=== PATIENT | male | born 1975 | race Caucasian/White ===

== ENCOUNTER 2017-04-13 20:38 | Emergency (ER) | payer SELFPAY ==
[2017-04-13 23:47] LABS: #Eosinphils 0.1 thou/uL (0.0-0.7); #Lymphocytes 0.7 thou/uL (1.20-3.40); #Monocytes 0.7 thou/uL (0.11-0.59); #Neutrophils 5.7 thou/uL (1.40-6.50); %Basophils 0.4 % (0.0-1.0); %Eosinophils 0.8 % (0.0-10.0); %Lymphocytes 9.9 % (21.0-51.0); %Monocytes 10.2 % (0.0-10.0); Hematocrit 47.7 % (42.0-52.0); Mean Platelet Volume 6.3 fL (7.4-10.4); Red Blood Cell (RBC) Count 4.55 mill/uL (4.70-6.10); White Blood Cell (WBC) Count 7.2 thou/uL (4.8-10.8)
[2017-04-13 23:56] LABS: Acetaminophen Less than 6.0 mcg/mL (10.0-30.0); Salicylate Less than 8.0 mg/dL (15.0-30.0)
[2017-04-13 23:58] LABS: ALT (SGPT) 14 U/L (8-55); AST (SGOT) 24 U/L (5-34); Alkaline Phosphatase 73 U/L (40-150); Anion Gap 14 mmol/L (10-20); BUN (Urea Nitrogen) 8 mg/dL (8.9-20.6); Bilirubin, Total 0.5 mg/dL (0.2-1.2); Calc. Creatinine Clearance 0 mL/min (70-130); Calcium 9.3 mg/dL (7.8-10.44); Carbon Dioxide 25 mmol/L (22-29); Chloride 97 mmol/L (98-107); Estimated GFR-MDRD 83; Globulin 2.4 g/dL (2.4-3.5); Protein, Total 6.3 g/dL (6.0-8.3)
[2017-04-14 00:26] LABS: Troponin I Less than 0.010 ng/mL (< 0.028)
== END 2017-04-14 00:40 | disposition home or self-care (01) ==
LOC: ERS 20:38
DX: R42 Dizziness and giddiness (principal); R11.0 Nausea; T50.905A Adverse effect of unspecified drugs, medicaments and biological substances, initial encounter; F90.9 Attention-deficit hyperactivity disorder, unspecified type; F17.210 Nicotine dependence, cigarettes, uncomplicated; Z79.899 Other long term (current) drug therapy
CPT/HCPCS: 36415; 80053; 80307; 82553; 84484; 85025; 93005

== ENCOUNTER 2023-04-01 16:59 | Emergency (ER) | payer SELFPAY ==
[2023-04-01] MEDS ORDERED: Carbamide Peroxide 6.5% Otic Drops 15 ml Bottle ONE (17:20)
== END 2023-04-01 18:13 | disposition home or self-care (01) ==
LOC: ERS 16:59
DX: H61.23 Impacted cerumen, bilateral (principal); F17.290 Nicotine dependence, other tobacco product, uncomplicated
CPT/HCPCS: 99282

== ENCOUNTER 2025-04-12 04:55 | Inpatient (IN) | payer OTHER ==
[2025-04-12] MEDS ORDERED: Ondansetron PF 4 MG/2 ML Vial ONE (06:18)
[2025-04-12] MEDS ORDERED: Glucagon 1 MG/ML KIT IM PRN (06:22)
[2025-04-12] MEDS ORDERED: Ondansetron PF 4 MG/2 ML Vial IVP PRN (06:22)
[2025-04-12] MEDS ORDERED: Dextrose 50% Abboject 50 ML SYRINGE SLOW IVP PRN (06:22)
[2025-04-12] MEDS ORDERED: hydrALAZINE 20 MG/ML VIAL SLOW IVP PRN (06:22)
[2025-04-12] MEDS ORDERED: Acetaminophen 325 MG TAB ONE (07:11)
[2025-04-12] MEDS: Acetaminophen 325 MG TAB PO SCH (07:17)
[2025-04-12] MEDS ORDERED: Dexamethasone 10 MG/ML VIAL ONE (08:19)
[2025-04-12] MEDS ORDERED: HYDROcodone/Acetaminophen 10/325 mg Tablet ONE (08:19)
[2025-04-12] MEDS: Dexamethasone 10 MG/ML VIAL SLOW IVP SCH (08:23)
[2025-04-12] MEDS: Methocarbamol 500 MG TAB PO SCH (10:00)
[2025-04-13 04:22] LABS: #Basophils 0.03 10x3/uL (0.0-0.2); #Eosinophils Less than 0.03 10x3/uL (0.0-0.7); #Monocytes 1.40 10x3/uL (0.11-0.59); #Neutrophils 14.57 10x3/uL (1.40-6.50); %Basophils 0.2 % (0.0-1.0); %Eosinophils 0.0 % (0.0-10.0); %Lymphocytes 5.7 % (21.0-51.0); %Monocytes 8.2 % (0.0-10.0); %Neutrophils 85.4 % (42.0-75.0); Hematocrit 45.9 % (42.0-52.0); Hemoglobin 16.2 g/dL (14.0-18.0); Mean Corpuscular Hemoglobin 34.5 pg (27.0-31.0); Mean Corpuscular Volume 97.7 fL (78.0-98.0); Platelet Count 234 10x3/uL (130-400); Red Blood Cell (RBC) Count 4.70 mill/uL (4.70-6.10); White Blood Cell (WBC) Count 17.06 10x3/uL (4.8-10.8)
[2025-04-13 04:46] LABS: Anion Gap 14 mmol/L (10-20); BUN (Urea Nitrogen) 13 mg/dL (8.9-20.6); Calc. Creatinine Clearance 117 mL/min (70-130); Calcium 9.0 mg/dL (7.8-10.44); Carbon Dioxide 26 mmol/L (22-29); Chloride 100 mmol/L (98-107); Glucose 130 mg/dL (70-105); Potassium 4.5 mmol/L (3.5-5.1); Sodium 135 mmol/L (136-145)
[2025-04-14 04:52] LABS: #Basophils Less than 0.03 10x3/uL (0.0-0.2); #Eosinophils Less than 0.03 10x3/uL (0.0-0.7); #Monocytes 0.93 10x3/uL (0.11-0.59); #Neutrophils 6.22 10x3/uL (1.40-6.50); %Basophils 0.2 % (0.0-1.0); %Eosinophils 0.1 % (0.0-10.0); %Lymphocytes 25.3 % (21.0-51.0); %Monocytes 9.6 % (0.0-10.0); %Neutrophils 64.4 % (42.0-75.0); Hematocrit 44.8 % (42.0-52.0); Hemoglobin 15.2 g/dL (14.0-18.0); Mean Corpuscular Hemoglobin 34.3 pg (27.0-31.0); Mean Corpuscular Volume 101.1 fL (78.0-98.0); Platelet Count 206 10x3/uL (130-400); Red Blood Cell (RBC) Count 4.43 mill/uL (4.70-6.10); White Blood Cell (WBC) Count 9.67 10x3/uL (4.8-10.8)
[2025-04-14 05:28] LABS: Anion Gap 12 mmol/L (10-20); BUN (Urea Nitrogen) 14 mg/dL (8.9-20.6); Calc. Creatinine Clearance 136 mL/min (70-130); Calcium 8.7 mg/dL (7.8-10.44); Carbon Dioxide 27 mmol/L (22-29); Chloride 99 mmol/L (98-107); Glucose 98 mg/dL (70-105); Potassium 3.8 mmol/L (3.5-5.1); Sodium 134 mmol/L (136-145)
[2025-04-14] MEDS: Enoxaparin 40 MG (0.4 mL) SYRINGE SC SCH (09:37)
[2025-04-14] MEDS ORDERED: Mirtazapine 15 MG TAB PO PRN (11:53)
[2025-04-14] MEDS: lamoTRIgine 25 MG TAB PO SCH (20:49)
[2025-04-15 05:14] LABS: #Basophils 0.03 10x3/uL (0.0-0.2); #Eosinophils 0.05 10x3/uL (0.0-0.7); #Monocytes 0.71 10x3/uL (0.11-0.59); #Neutrophils 3.44 10x3/uL (1.40-6.50); %Basophils 0.5 % (0.0-1.0); %Eosinophils 0.8 % (0.0-10.0); %Lymphocytes 33.2 % (21.0-51.0); %Monocytes 11.1 % (0.0-10.0); %Neutrophils 53.9 % (42.0-75.0); Hematocrit 43.0 % (42.0-52.0); Hemoglobin 14.8 g/dL (14.0-18.0); Mean Corpuscular Hemoglobin 34.4 pg (27.0-31.0); Mean Corpuscular Volume 100.0 fL (78.0-98.0); Platelet Count 194 10x3/uL (130-400); Red Blood Cell (RBC) Count 4.30 mill/uL (4.70-6.10); White Blood Cell (WBC) Count 6.38 10x3/uL (4.8-10.8)
[2025-04-15 05:36] LABS: Anion Gap 15 mmol/L (10-20); BUN (Urea Nitrogen) 12 mg/dL (8.9-20.6); Calc. Creatinine Clearance 128 mL/min (70-130); Calcium 8.7 mg/dL (7.8-10.44); Carbon Dioxide 24 mmol/L (22-29); Chloride 100 mmol/L (98-107); Glucose 90 mg/dL (70-105); Potassium 3.6 mmol/L (3.5-5.1); Sodium 135 mmol/L (136-145)
[2025-04-15 05:39] VITALS: BMI 25.9
[2025-04-15 08:20] VITALS: TEMP 97.9
[2025-04-15] MEDS ORDERED: DEXTROAMPHETAMINE PO SCH (09:00)
[2025-04-15] MEDS ORDERED: AMPHETAMINE PO SCH (09:00)
[2025-04-15 15:56] VITALS: BP 134/89
== END 2025-04-15 16:44 | disposition home or self-care (01) | DRG 552 ==
LOC: ERS 04:55 → ERHOLD 06:22 → CCU 11:29 → SURG B 04-13 20:18
PROVIDERS: ADMIT Surgery Trauma Surgery; ATTEND Surgery Trauma Surgery
DX: S32.019A Unspecified fracture of first lumbar vertebra, initial encounter for closed fracture (principal); S32.028A Other fracture of second lumbar vertebra, initial encounter for closed fracture; F31.9 Bipolar disorder, unspecified; F20.9 Schizophrenia, unspecified; F17.210 Nicotine dependence, cigarettes, uncomplicated; F10.10 Alcohol abuse, uncomplicated; M48.061 Spinal stenosis, lumbar region without neurogenic claudication; V89.2XXA Person injured in unspecified motor-vehicle accident, traffic, initial encounter
CPT/HCPCS: 36415; 72100; 72148; 80048; 85025; 93970; 96374; 96375; G0390; J1100; J1650